=== PATIENT | male | born 1960 | race Two or more races ===

== ENCOUNTER 2017-01-31 12:12 | Inpatient (IN) | payer MEDICAID ==
[~2017-01-31] VITALS: Ht 170.2 cm; Wt 85.2 kg
[2017-01-31 17:00] VITALS: BP 125/78
[2017-01-31] MEDS ORDERED: ACETAMINOPHEN 325 MG TAB PO PRN (18:30)
[2017-01-31] MEDS ORDERED: NITROGLYCERIN 0.4 MG SL TAB SL PRN (18:30)
[2017-01-31] MEDS ORDERED: MORPHINE SULF INJ 2 MG/ML SYRINGE 1ML IV PRN ×2 (18:30)
[2017-01-31] MEDS ORDERED: ONDANSETRON HCL 4 MG/2 ML VIAL IV PRN (18:30)
[2017-01-31 20:00] VITALS: BP 134/75
[2017-01-31] MEDS ORDERED: CHLORHEXIDINE 0.12% ORAL rinse 473ML MT ONE (21:00)
[2017-01-31 21:46] VITALS: BP 134/75
[2017-01-31] MEDS: CARVEDILOL 3.125 MG TAB PO SCH (21:46)
[2017-01-31] MEDS: ATORVASTATIN 20 MG TAB PO SCH (21:47)
[2017-01-31] MEDS: FAMOTIDINE 20 MG TAB PO SCH (21:49)
[2017-02-01] VITALS (7 sets, daily range): BP systolic 107–137; BP diastolic 71–81
[2017-02-01 08:03] LABS: Urine RBC None Seen /hpf (0 - 3)
[2017-02-01 08:21] LABS: Albumin 3.5 g/dL (3.4-5.0); BUN/Creatinine Ratio 19.8; Calcium 8.9 mg/dL (8.5-10.1); Potassium 4.3 mmol/L (3.5-5.1)
[2017-02-01 08:24] LABS: Bilirubin, Total 0.8 mg/dL (0.2-1.0); Total Protein 8.5 g/dL (6.4-8.2)
[2017-02-01 08:37] LABS: Basophils # (auto) 0 uL; Basophils % (auto) 0.7 % (0.0-2.0); Eosinophils # (auto) 0.2 uL; Eosinophils % (auto) 3.2 % (0.0-7.0); Hematocrit 44.6 % (41.0-53.0); Hemoglobin 14.9 g/dL (13.5-17.5); Lymphocytes # (auto) 1.9 uL; Lymphocytes % (auto) 28.5 % (10.0-50.0); Mean Corpuscular Hemoglobin 29.2 pg (28.0-32.0); Mean Corpuscular Hgb Conc. 33.5 g/dL (32.0-36.0); Mean Corpuscular Volume 87.1 fL (80.0-100.0); Mean Platelet Volume 8.3 fL (7.4-10.4); Monocytes # (auto) 0.7 uL; Monocytes % (auto) 10.4 % (0.0-12.0); Neutrophils # (auto) 3.8 uL; Neutrophils % (auto) 57.2 % (37.0-80.0); Platelet Count (auto) 281 10^3/uL (140-450); Red Cell Distribution Width 12.9 % (11.6-16.0); White Blood Cell 6.7 10^3/uL (4.4-10.8)
[2017-02-01 08:41] LABS: INR 1.07 (0.9-1.15); Partial Thromboplastin Time 28.3 sec (22.64-33.71)
[2017-02-01 09:19] LABS: Urine Bilirubin Negative (Negative); Urine Blood Negative /uL (Negative); Urine Color Yellow (Yellow); Urine Glucose Normal (Normal); Urine Ketone Negative (Negative); Urine Mucus FEW (None Seen); Urine Nitrite Negative (Negative); Urine Urobilinogen Normal (Negative); Urine pH 5.5 (5.0-8.0)
[2017-02-01] MEDS: FAMOTIDINE 20 MG TAB PO SCH ×2 (09:45→21:58)
[2017-02-01] MEDS: CARVEDILOL 3.125 MG TAB PO SCH ×2 (09:46→21:58)
[2017-02-01] MEDS ORDERED: amLODIPine BESYLATE 5 MG TAB PO SCH (10:00)
[2017-02-01] MEDS ORDERED: ENOXAPARIN SOD 40 MG/0.4 ML SYRINGE SC SCH (10:00)
[2017-02-01] MEDS ORDERED: ASPirin 81 mg TAB PO SCH (10:00)
[2017-02-01] MEDS: ATORVASTATIN 20 MG TAB PO SCH (21:57)
[2017-02-01] MEDS ORDERED: ASCORBIC ACID 500 MG TAB PO ONE (22:00)
[2017-02-01] MEDS: MUPIROCIN 2% OINT 22GM TOP SCH (22:30)
[2017-02-02] VITALS (39 sets, daily range): BP systolic 25–139; BP diastolic 13–77
[2017-02-02] MEDS ORDERED: CHLORHEXIDINE 0.12% ORAL rinse 473ML MT ONE (00:47)
[2017-02-02] MEDS ORDERED: CHLORHEXIDINE 4% TOPICAL soln 473ML TOP ONE (03:00)
[2017-02-02 03:43] LABS: Basophils # (auto) 0.1 uL; Basophils % (auto) 0.7 % (0.0-2.0); Eosinophils # (auto) 0.3 uL; Eosinophils % (auto) 3.5 % (0.0-7.0); Hematocrit 42.4 % (41.0-53.0); Hemoglobin 14.1 g/dL (13.5-17.5); Lymphocytes # (auto) 2.6 uL; Lymphocytes % (auto) 31.9 % (10.0-50.0); Mean Corpuscular Hemoglobin 29.2 pg (28.0-32.0); Mean Corpuscular Hgb Conc. 33.3 g/dL (32.0-36.0); Mean Corpuscular Volume 87.5 fL (80.0-100.0); Mean Platelet Volume 8.5 fL (7.4-10.4); Monocytes # (auto) 1.1 uL; Monocytes % (auto) 13.9 % (0.0-12.0); Neutrophils # (auto) 4.1 uL; Platelet Count (auto) 273 10^3/uL (140-450); Red Cell Distribution Width 12.8 % (11.6-16.0); White Blood Cell 8.1 10^3/uL (4.4-10.8)
[2017-02-02 04:05] LABS: INR 1.1 (0.9-1.15); Partial Thromboplastin Time 27.8 sec (22.64-33.71); Prothrombin Time 11.3 sec (9.37-12.3)
[2017-02-02 04:41] LABS: Albumin 3.6 g/dL (3.4-5.0); BUN/Creatinine Ratio 17.3; Bilirubin, Direct 0.2 mg/dL (0-0.2); Bilirubin, Total 0.7 mg/dL (0.2-1.0); Calcium 8.6 mg/dL (8.5-10.1); Magnesium 2.4 mg/dL (1.6-2.6); Potassium 4.1 mmol/L (3.5-5.1); Total Protein 8.4 g/dL (6.4-8.2)
[2017-02-02] MEDS ORDERED: ceFAZolin 1GM/50ML D5W 0 ML IV ONE (04:58)
[2017-02-02] MEDS: MUPIROCIN 2% OINT 22GM TOP SCH (05:00)
[2017-02-02] MEDS ORDERED: ACCU-CHEK COMFORT CURVE STRIP VI ONE (06:00)
[2017-02-02] MEDS ORDERED: HEPARIN 1,000 UNITS/ml 1ML VIAL ONE (06:33)
[2017-02-02] MEDS ORDERED: ceFAZolin 1GM VL ONE (06:33)
[2017-02-02] MEDS ORDERED: PAPAVERINE HCL 60 MG/2 ML 2ML VIAL ONE (06:33)
[2017-02-02] MEDS ORDERED: NEOMYCIN-BACITRACIN-POLYM 15GM TOP OINT TOP ONE (06:33)
[2017-02-02] MEDS ORDERED: ALBUMIN 25% 0 ML IV ONE (07:59)
[2017-02-02] MEDS ORDERED: ceFAZolin 1GM 2 GM in D5W 5% 50 ML IV ONE (08:00)
[2017-02-02] MEDS ORDERED: SODIUM BICARBONATE 8.4 % INJ 50ML VIAL IV ONE (08:00)
[2017-02-02] MEDS ORDERED: VANCOMYCIN 1GM/250ML D5W 250 ML IV ONE (08:00)
[2017-02-02] MEDS ORDERED: DEXAMETHASONE SODIUM PHOSP 120 MG/30ml VIAL IV ONE (08:00)
[2017-02-02] MEDS ORDERED: AMINOCAPROIC ACID 5 GM in SODIUM CHL 0.9% 250 ML IV ONE (08:00)
[2017-02-02] MEDS ORDERED: LIDOCAINE HCL 100 MG/5ML (2%) SYRG INJ IV ONE (08:00)
[2017-02-02] MEDS ORDERED: MANNITOL 20% SOLN 100 gm/500ml BAG IV ONE (08:00)
[2017-02-02] MEDS ORDERED: AMINOCAPROIC ACID 5 GM/20 ML VL IV ONE (08:00)
[2017-02-02] MEDS ORDERED: AMINOCAPROIC ACID 10 GM in SODIUM CHL 0.9% 100 ML IV ONE (08:00)
[2017-02-02] MEDS ORDERED: ADENOSINE 6 MG/2 ML INJ IV ONE (08:00)
[2017-02-02] MEDS ORDERED: VASOPRESSIN 50 UNITS in SODIUM CHL 0.9% 247.5 ML IV ONE (08:00)
[2017-02-02] MEDS ORDERED: MAGNESIUM SULF 50% 40 MEQ/10 ML VL IV ONE (08:00)
[2017-02-02] MEDS ORDERED: CALCIUM CHLOR(10%) 100MG/ML 10ML SYRINGE IV ONE ×3 (08:00→13:02)
[2017-02-02] MEDS ORDERED: HEPARIN 30000 UNITS in SODIUM CHLORIDE 0.9% 1000 ML IV ONE (08:00)
[2017-02-02] MEDS ORDERED: POTASSIUM CHL 2MEQ/ML 20ML IV ONE (08:00)
[2017-02-02] MEDS ORDERED: InsuLIN R (HUMAN) 100 UNITS in SODIUM CHL 0.9% 99 ML IV ONE (08:00)
[2017-02-02] MEDS ORDERED: EPINEPHrine HCL 4 MG in D5W 5% 250 ML IM ONE (08:00)
[2017-02-02] MEDS ORDERED: PHENYLEPHRINE HCL 10 MG/ML VL IV ONE (08:00)
[2017-02-02] MEDS ORDERED: PHENYLEPHRINE INJ 20 MG in SODIUM CHL 0.9% 250 ML IV ONE (08:00)
[2017-02-02] MEDS ORDERED: PLASMA-LYTE A pH7.4 5,000 ML INJ ONE (08:01)
[2017-02-02] MEDS ORDERED: MIDAZOLAM HCL 1MG/1ML-2 ML VIAL ONE (08:03)
[2017-02-02] MEDS ORDERED: LIDOCAINE 2% JELLY 11ml (GLYDO) ONE (08:50)
[2017-02-02] MEDS ORDERED: fentaNYL CITRATE 10 ML ONE (09:29)
[2017-02-02] MEDS ORDERED: ROCURONIUM 10MG/ML 10ML VIAL IV ONE ×2 (10:40→13:48)
[2017-02-02] MEDS ORDERED: NITROGLYCERIN 50MG/250ML 250 ML IV ONE ×2 (10:58→12:40)
[2017-02-02] MEDS ORDERED: PROPOFOL 100 ML IV ONE ×2 (11:03→11:57)
[2017-02-02] MEDS ORDERED: ETOMIDATE (2MG/ML) 20ML VIAL IV ONE (11:04)
[2017-02-02] MEDS ORDERED: ePHEDrine SULFATE 50 MG/ML AMP ONE (11:05)
[2017-02-02] MEDS ORDERED: AMIODARONE HCL (50 MG/ ML) 3 ML VIAL IV ONE (12:38)
[2017-02-02] MEDS ORDERED: NICARDIPINE 25MG/250ML BAG KIT 250 ML IV ONE (12:39)
[2017-02-02] MEDS ORDERED: PHENYLEPHRINE IV 250 ML IV ONE (12:39)
[2017-02-02] MEDS ORDERED: EPINEPHrine HCL 250 ML IV ONE (12:39)
[2017-02-02] MEDS ORDERED: MAGNESIUM SULFATE 1GM/100ML 100 ML IV ONE (12:39)
[2017-02-02] MEDS ORDERED: DOPamine 1600MCG/ML 250 ML IV ONE (12:39)
[2017-02-02] MEDS ORDERED: POTASSIUM CHL 20MEQ/100ML 200 ML IV ONE (12:40)
[2017-02-02] MEDS ORDERED: SODIUM BICARBONATE 8.4% INJ 50ML SYRINGE ONE (12:40)
[2017-02-02] MEDS ORDERED: MILRINONE 20MG/100ML 100 ML IV ONE (12:40)
[2017-02-02] MEDS ORDERED: DOBUTamine 1000MCG/ML 250 ML IV ONE (12:40)
[2017-02-02] MEDS ORDERED: ALBUMIN 5% 750 ML IV ONE (12:41)
[2017-02-02] MEDS ORDERED: NOREPINEPHRINE BITARTRATE 250 ML IV ONE (12:41)
[2017-02-02] MEDS ORDERED: PROTAMINE SULFATE 250 MG/25 ML VL IV ONE (14:21)
[2017-02-02] MEDS ORDERED: ALBUMIN 5% 250 ML IV ONE ×2 (14:46→15:02)
[2017-02-02] MEDS: MILRINONE 20MG/100ML 100 ML IV SCH (15:39)
[2017-02-02] MEDS: SODIUM CHLORIDE 0.9% 500 ML IV SCH (15:39)
[2017-02-02] MEDS ORDERED: INSULIN DRIP 100 UNIT/100ML 100 ML IV SCH (15:39)
[2017-02-02] MEDS ORDERED: NOREPINEPHRINE BITARTRATE 250 ML IV SCH (15:39)
[2017-02-02] MEDS ORDERED: SODIUM CHLORIDE 0.9% 200 ML IV PRN (15:39)
[2017-02-02] MEDS ORDERED: NITROGLYCERIN 50MG/250ML 250 ML IV SCH (15:39)
[2017-02-02] MEDS: NICARDIPINE 25MG/250ML BAG KIT 250 ML IV SCH ×2 (15:39→20:39)
[2017-02-02] MEDS ORDERED: PHENYLEPHRINE IV 250 ML IV SCH (15:39)
[2017-02-02] MEDS ORDERED: MAGNESIUM SULFATE 1GM/100ML 100 ML IV PRN (15:45)
[2017-02-02] MEDS ORDERED: IPRATROPIUM BROM 0.5 MG/2.5ML INH SOL NEB PRN (15:45)
[2017-02-02] MEDS ORDERED: POTASSIUM CHL 20MEQ/100ML 100 ML IV PRN (15:45)
[2017-02-02] MEDS ORDERED: DEXTROSE (50%) 50ML SYRG IV PRN (15:45)
[2017-02-02] MEDS ORDERED: ALBUMIN 5% 250 ML IV PRN (15:45)
[2017-02-02] MEDS ORDERED: METOCLOPRAMIDE HCL 5MG/ml INJ 2ml VIAL IV PRN (15:45)
[2017-02-02] MEDS ORDERED: AMIODARONE HCL 150 MG in D5W 5% 100 ML IV ONE (15:45)
[2017-02-02] MEDS: AMIODARONE HCL 900 MG in DEXTROSE 500 ML IV SCH (15:49)
[2017-02-02] MEDS: D5W/SOD CHL 0.45% 1,000 ML IV SCH ×2 (16:00→22:19)
[2017-02-02] MEDS: ACCU-CHEK COMFORT CURVE STRIP VI SCH ×7 (16:00→23:00)
[2017-02-02] MEDS: PROPOFOL 100 ML IV SCH ×2 (16:00→18:18)
[2017-02-02 16:48] LABS: Basophils # (auto) 0 uL; Basophils % (auto) 0.2 % (0.0-2.0); Eosinophils # (auto) 0 uL; Eosinophils % (auto) 0.1 % (0.0-7.0); Hematocrit 28.7 % (41.0-53.0); Hemoglobin 9.7 g/dL (13.5-17.5); Lymphocytes # (auto) 0.8 uL; Mean Corpuscular Hemoglobin 29.5 pg (28.0-32.0); Mean Corpuscular Hgb Conc. 33.7 g/dL (32.0-36.0); Mean Corpuscular Volume 87.7 fL (80.0-100.0); Mean Platelet Volume 7.9 fL (7.4-10.4); Monocytes # (auto) 1.5 uL; Monocytes % (auto) 9.4 % (0.0-12.0); Neutrophils # (auto) 13.5 uL; Neutrophils % (auto) 85.3 % (37.0-80.0); Platelet Count (auto) 165 10^3/uL (140-450); Red Cell Distribution Width 12.9 % (11.6-16.0); White Blood Cell 15.9 10^3/uL (4.4-10.8)
[2017-02-02 16:58] LABS: INR 1.23 (0.9-1.15); Partial Thromboplastin Time 30.1 sec (22.64-33.71); Prothrombin Time 12.7 sec (9.37-12.3)
[2017-02-02 17:19] LABS: BUN/Creatinine Ratio 13.6; Bilirubin, Total 1.8 mg/dL (0.2-1.0); Calcium 7.9 mg/dL (8.5-10.1); Potassium 3.5 mmol/L (3.5-5.1); Total Protein 6.6 g/dL (6.4-8.2)
[2017-02-02] MEDS: MORPHINE SULFATE 4 MG/ML SYRG IV PRN (17:25)
[2017-02-02] MEDS: ceFAZolin 1GM 2 GM in D5W 5% 100 ML IV SCH ×2 (17:30→23:55)
[2017-02-02 17:36] LABS: Phosphorus 0.6 mg/dL (2.5-4.90)
[2017-02-02] MEDS ORDERED: fentaNYL Drip 2500mCg/250mlNS 250 ML IV ONE (17:43)
[2017-02-02] MEDS ORDERED: fentaNYL Drip 2500mCg/250mlNS 250 ML IV SCH (17:58)
[2017-02-02] MEDS ORDERED: CALCIUM GLUC 4.65 MEQ/10ML 4.65 MEQ in SODIUM CHL 0.9% 50 ML IV ONE (18:15)
[2017-02-02] MEDS ORDERED: POTASSIUM PHOSPHATE 22 MEQ in SODIUM CHL 0.9% 100 ML IV ONE (18:15)
[2017-02-02] MEDS: VANCOMYCIN 1GM/250ML D5W 250 ML IV SCH (18:18)
[2017-02-03] VITALS (101 sets, daily range): BP systolic 22–180; BP diastolic 7–176
[2017-02-03] MEDS ORDERED: AMIODARONE HCL (50 MG/ ML) 3 ML VIAL IV ONE (00:05)
[2017-02-03] MEDS: AMIODARONE HCL 900 MG in DEXTROSE 500 ML IV SCH ×2 (00:05→07:00)
[2017-02-03 00:16] LABS: Basophils # (auto) 0 uL; Basophils % (auto) 0.1 % (0.0-2.0); Eosinophils # (auto) 0 uL; Eosinophils % (auto) 0.1 % (0.0-7.0); Hematocrit 29.7 % (41.0-53.0); Hemoglobin 9.9 g/dL (13.5-17.5); Lymphocytes # (auto) 0.6 uL; Lymphocytes % (auto) 4.7 % (10.0-50.0); Mean Corpuscular Hemoglobin 29.5 pg (28.0-32.0); Mean Corpuscular Hgb Conc. 33.4 g/dL (32.0-36.0); Mean Corpuscular Volume 88.3 fL (80.0-100.0); Mean Platelet Volume 8.4 fL (7.4-10.4); Monocytes # (auto) 0.7 uL; Monocytes % (auto) 5.6 % (0.0-12.0); Neutrophils # (auto) 11.6 uL; Neutrophils % (auto) 89.5 % (37.0-80.0); Platelet Count (auto) 157 10^3/uL (140-450); SUSPECT VIEW TRANSMISSION; White Blood Cell 12.9 10^3/uL (4.4-10.8)
[2017-02-03 00:27] LABS: Potassium 4.4 mmol/L (3.5-5.1)
[2017-02-03 00:53] LABS: BUN/Creatinine Ratio 13.8; Calcium 8.3 mg/dL (8.5-10.1)
[2017-02-03] MEDS: ACCU-CHEK COMFORT CURVE STRIP VI SCH ×19 (01:00→21:31)
[2017-02-03] MEDS: NICARDIPINE 25MG/250ML BAG KIT 250 ML IV SCH ×5 (01:39→18:28)
[2017-02-03] MEDS: MILRINONE 20MG/100ML 100 ML IV SCH ×2 (01:42→09:42)
[2017-02-03] MEDS: VANCOMYCIN 1GM/250ML D5W 250 ML IV SCH ×2 (03:54→17:15)
[2017-02-03] MEDS: SODIUM BICARBONATE 8.4% INJ 50ML SYRINGE IV PRN ×2 (04:02→10:52)
[2017-02-03] MEDS: D5W/SOD CHL 0.45% 1,000 ML IV SCH ×2 (04:59→09:41)
[2017-02-03 05:05] LABS: Magnesium 3.4 mg/dL (1.6-2.6); Phosphorus 3.6 mg/dL (2.5-4.90)
[2017-02-03 06:09] LABS: BUN/Creatinine Ratio 16.8; Potassium 4.5 mmol/L (3.5-5.1)
[2017-02-03] MEDS: MORPHINE SULFATE 4 MG/ML SYRG IV PRN ×4 (07:50→19:23)
[2017-02-03] MEDS: ceFAZolin 1GM 2 GM in D5W 5% 100 ML IV SCH ×3 (07:51→23:35)
[2017-02-03] MEDS ORDERED: ALBUMIN 25% 100 ML IV ONE (09:00)
[2017-02-03] MEDS ORDERED: PANTOPRAZOLE SODIUM 40 MG/10 ML VIAL IV SCH (10:00)
[2017-02-03] MEDS ORDERED: FUROSEMIDE 20 MG/2 ML VIAL ONE (10:59)
[2017-02-03] MEDS ORDERED: FUROSEMIDE 20 MG/2 ML VIAL IV ONE (11:15)
[2017-02-03] MEDS ORDERED: SODIUM BICARBONATE 8.4 % INJ 50ML VIAL IV ONE (11:15)
[2017-02-03] MEDS: SODIUM CHLORIDE 0.9% 500 ML IV SCH (13:09)
[2017-02-03] MEDS ORDERED: HYDROcodone-ACET 7.5/325MG TAB PO PRN (13:15)
[2017-02-03] MEDS ORDERED: METOCLOPRAMIDE HCL 5MG/ml INJ 2ml VIAL IV PRN (13:15)
[2017-02-03] MEDS ORDERED: POTASSIUM CHL 20MEQ/100ML 100 ML IV PRN (13:15)
[2017-02-03] MEDS ORDERED: DEXTROSE (50%) 50ML SYRG IV PRN (13:15)
[2017-02-03] MEDS ORDERED: LIDOCAINE 1% HCL (LOCAL ANESTH.) INJ 20ML MDV ONE (13:50)
[2017-02-03] MEDS: InsuLIN REG 1unit/0.01ml Soln (100units/ml) SC SCH ×3 (14:00→21:30)
[2017-02-03] MEDS: SODIUM CHLORIDE 0.9% 1,000 ML IV SCH (15:25)
[2017-02-03] MEDS ORDERED: CALCIUM GLUC 4.65 MEQ/10ML 4.65 MEQ in SODIUM CHL 0.9% 50 ML IV ONE (15:45)
[2017-02-03] MEDS ORDERED: hydrALAZINE HCL 20 MG/ML VL IV PRN (17:15)
[2017-02-03] MEDS ORDERED: ASPirin 81 mg TAB PO ONE (17:30)
[2017-02-03] MEDS ORDERED: FUROSEMIDE 20 MG/2 ML VIAL IV PRN (17:30)
[2017-02-03] MEDS: FUROSEMIDE 40 MG TAB PO SCH (17:49)
[2017-02-03] MEDS: Boost Glucose Control 8 Ounces PO SCH (17:49)
[2017-02-03] MEDS: HYDROcodone-ACET 7.5/325MG TAB PO PRN (18:27)
[2017-02-03] MEDS: ASCORBIC ACID 500 MG TAB PO SCH (21:20)
[2017-02-03] MEDS: ATORVASTATIN 20 MG TAB PO SCH (21:20)
[2017-02-03] MEDS: METOPROLOL TARTRATE 25 MG TAB PO SCH (21:21)
[2017-02-03] MEDS: AMIODARONE HCL 200 MG TAB PO SCH (21:21)
[2017-02-03] MEDS: DOCUSATE SOD 100 MG CAP PO SCH (21:34)
[2017-02-04] VITALS (98 sets, daily range): BP systolic 88–158; BP diastolic 36–85
[2017-02-04] MEDS: MORPHINE SULFATE 4 MG/ML SYRG IV PRN ×2 (00:29→04:30)
[2017-02-04] MEDS: ACCU-CHEK COMFORT CURVE STRIP VI SCH ×7 (01:41→20:00)
[2017-02-04] MEDS: InsuLIN REG 1unit/0.01ml Soln (100units/ml) SC SCH ×4 (01:48→20:00)
[2017-02-04] MEDS: NICARDIPINE 25MG/250ML BAG KIT 250 ML IV SCH ×5 (02:39→22:39)
[2017-02-04] MEDS: VANCOMYCIN 1GM/250ML D5W 250 ML IV SCH (03:36)
[2017-02-04 03:55] LABS: Basophils # (auto) 0 uL; DEFINITIVE VIEW TRANSMISSION; Eosinophils # (auto) 0 uL; Hematocrit 24.3 % (41.0-53.0); Hemoglobin 8.1 g/dL (13.5-17.5); Lymphocytes # (auto) 1.3 uL; Lymphocytes % (auto) 7.8 % (10.0-50.0); Mean Corpuscular Hemoglobin 29.6 pg (28.0-32.0); Mean Corpuscular Hgb Conc. 33.2 g/dL (32.0-36.0); Mean Corpuscular Volume 89.1 fL (80.0-100.0); Mean Platelet Volume 9.4 fL (7.4-10.4); Monocytes # (auto) 1.9 uL; Monocytes % (auto) 11.6 % (0.0-12.0); Neutrophils % (auto) 80.6 % (37.0-80.0); Platelet Count (auto) 150 10^3/uL (140-450); Red Cell Distribution Width 13.4 % (11.6-16.0); White Blood Cell 16.1 10^3/uL (4.4-10.8)
[2017-02-04] MEDS: FUROSEMIDE 40 MG TAB PO SCH ×2 (05:44→17:40)
[2017-02-04] MEDS: SODIUM CHLORIDE 0.9% 1,000 ML IV SCH ×2 (06:08→17:55)
[2017-02-04 07:07] LABS: Albumin 3.5 g/dL (3.4-5.0); BUN/Creatinine Ratio 27.7; Calcium 7.5 mg/dL (8.5-10.1); Magnesium 2.8 mg/dL (1.6-2.6); Potassium 4.4 mmol/L (3.5-5.1)
[2017-02-04 07:09] LABS: Bilirubin, Total 1.2 mg/dL (0.2-1.0)
[2017-02-04] MEDS ORDERED: CALCIUM GLUC 4.65 MEQ/10ML 4.65 MEQ in SODIUM CHL 0.9% 50 ML IV ONE ×2 (07:45→08:30)
[2017-02-04] MEDS: ceFAZolin 1GM 2 GM in D5W 5% 100 ML IV SCH (07:54)
[2017-02-04] MEDS: AMIODARONE HCL 900 MG in DEXTROSE 500 ML IV SCH ×2 (07:57→21:49)
[2017-02-04] MEDS: Boost Glucose Control 8 Ounces PO SCH ×3 (08:00→18:00)
[2017-02-04] MEDS ORDERED: INSULIN DRIP 100 UNIT/100ML 100 ML IV SCH (08:27)
[2017-02-04] MEDS ORDERED: DEXTROSE (50%) 50ML SYRG IV PRN ×2 (08:30→13:00)
[2017-02-04] MEDS: ONDANSETRON HCL 4 MG/2 ML VIAL IV PRN ×2 (09:24→18:14)
[2017-02-04] MEDS: ASPirin 81 mg TAB PO SCH (09:33)
[2017-02-04] MEDS: DOCUSATE SOD 100 MG CAP PO SCH ×2 (09:33→21:47)
[2017-02-04] MEDS: POTASSIUM CHL 20 Meq TABLET PO SCH (09:34)
[2017-02-04] MEDS: AMIODARONE HCL 200 MG TAB PO SCH ×2 (09:34→21:47)
[2017-02-04] MEDS: METOPROLOL TARTRATE 25 MG TAB PO SCH ×2 (09:35→21:48)
[2017-02-04] MEDS: NITROGLYCERIN 0.4MG/HR TOPICAL PATCH TD SCH (09:35)
[2017-02-04] MEDS: PANTOPRAZOLE 40 MG TAB PO SCH (09:35)
[2017-02-04] MEDS: ASCORBIC ACID 500 MG TAB PO SCH ×2 (09:35→21:48)
[2017-02-04] MEDS: MORPHINE SULF INJ 2 MG/ML SYRINGE 1ML IV PRN ×3 (09:37→16:46)
[2017-02-04] MEDS ORDERED: CLOPIDOGREL BISULFATE 75 MG TAB PO ONE (13:00)
[2017-02-04] MEDS ORDERED: IOHEXOL 350 MG/ML 100ML IJ ONE (13:04)
[2017-02-04] MEDS ORDERED: ACETYLCYSTEINE 10 %(100MG/ML) SOL 4ML NEB SCH (14:00)
[2017-02-04] MEDS ORDERED: LIDOCAINE VISCOUS 2% 15ML UD ONE (14:37)
[2017-02-04] MEDS ORDERED: LIDOCAINE VISCOUS 2% 15ML UD MT PRN (14:45)
[2017-02-04] MEDS: SODIUM CHLORIDE 0.9% 500 ML IV SCH (15:39)
[2017-02-04] MEDS: IPRATROPIUM BROM 0.5 MG/2.5ML INH SOL NEB SCH ×3 (15:41→22:00)
[2017-02-04] MEDS ORDERED: hydrALAZINE HCL 20 MG/ML VL IV PRN (16:45)
[2017-02-04] MEDS: ACETYLCYSTEINE 10 %(100MG/ML) SOL 4ML NEB SCH ×2 (18:00→22:00)
[2017-02-04 18:39] LABS: Hematocrit 26.9 % (41.0-53.0)
[2017-02-04] MEDS: HYDROcodone-ACET 7.5/325MG TAB PO PRN (21:01)
[2017-02-04] MEDS: ATORVASTATIN 20 MG TAB PO SCH (21:47)
[2017-02-04] MEDS: INSULIN DETEMIR(LEVEMIR) 1unit/0.01ml Soln (100units/ml) SC SCH (22:00)
[2017-02-05] VITALS (89 sets, daily range): BP systolic 100–129; BP diastolic 56–85
[2017-02-05] MEDS: IPRATROPIUM BROM 0.5 MG/2.5ML INH SOL NEB SCH ×6 (02:07→22:15)
[2017-02-05] MEDS: ACETYLCYSTEINE 10 %(100MG/ML) SOL 4ML NEB SCH ×6 (02:08→22:16)
[2017-02-05] MEDS: InsuLIN REG 1unit/0.01ml Soln (100units/ml) SC SCH ×6 (02:29→20:00)
[2017-02-05] MEDS: ACCU-CHEK COMFORT CURVE STRIP VI SCH ×6 (02:29→20:14)
[2017-02-05] MEDS: NICARDIPINE 25MG/250ML BAG KIT 250 ML IV SCH ×5 (03:39→23:39)
[2017-02-05 03:51] LABS: Basophils # (auto) 0 uL; Basophils % (auto) 0.2 % (0.0-2.0); Eosinophils # (auto) 0 uL; Hematocrit 27.9 % (41.0-53.0); Hemoglobin 9.2 g/dL (13.5-17.5); Lymphocytes # (auto) 1.9 uL; Lymphocytes % (auto) 14.4 % (10.0-50.0); Mean Corpuscular Hemoglobin 29.5 pg (28.0-32.0); Mean Corpuscular Volume 89.3 fL (80.0-100.0); Mean Platelet Volume 9.3 fL (7.4-10.4); Monocytes # (auto) 1.4 uL; Monocytes % (auto) 10.9 % (0.0-12.0); Neutrophils # (auto) 9.7 uL; Neutrophils % (auto) 74.5 % (37.0-80.0); Platelet Count (auto) 159 10^3/uL (140-450); Red Cell Distribution Width 13.8 % (11.6-16.0); White Blood Cell 13.1 10^3/uL (4.4-10.8)
[2017-02-05 04:19] LABS: Albumin 3.4 g/dL (3.4-5.0); BUN/Creatinine Ratio 34.2; Bilirubin, Total 3.3 mg/dL (0.2-1.0); Magnesium 2.8 mg/dL (1.6-2.6); Potassium 4.5 mmol/L (3.5-5.1); Total Protein 6.7 g/dL (6.4-8.2)
[2017-02-05] MEDS: FUROSEMIDE 40 MG TAB PO SCH ×2 (06:21→18:15)
[2017-02-05] MEDS: Boost Glucose Control 8 Ounces PO SCH ×3 (08:00→20:14)
[2017-02-05] MEDS: ASCORBIC ACID 500 MG TAB PO SCH ×2 (09:39→22:04)
[2017-02-05] MEDS: AMIODARONE HCL 200 MG TAB PO SCH ×2 (09:40→22:04)
[2017-02-05] MEDS: CLOPIDOGREL BISULFATE 75 MG TAB PO SCH (09:40)
[2017-02-05] MEDS: PANTOPRAZOLE 40 MG TAB PO SCH (09:40)
[2017-02-05] MEDS: METOPROLOL TARTRATE 25 MG TAB PO SCH ×2 (09:41→22:04)
[2017-02-05] MEDS: DOCUSATE SOD 100 MG CAP PO SCH ×2 (09:41→22:04)
[2017-02-05] MEDS: ASPirin 81 mg TAB PO SCH (09:42)
[2017-02-05] MEDS: NITROGLYCERIN 0.4MG/HR TOPICAL PATCH TD SCH (09:43)
[2017-02-05] MEDS: INSULIN DETEMIR(LEVEMIR) 1unit/0.01ml Soln (100units/ml) SC SCH ×2 (09:44→22:00)
[2017-02-05] MEDS: POTASSIUM CHL 20 Meq TABLET PO SCH (09:45)
[2017-02-05] MEDS: SODIUM CHLORIDE 0.9% 1,000 ML IV SCH (10:00)
[2017-02-05] MEDS: SODIUM CHLORIDE 0.9% 500 ML IV SCH (20:14)
[2017-02-05] MEDS: ONDANSETRON HCL 4 MG/2 ML VIAL IV PRN (20:21)
[2017-02-05] MEDS: AMIODARONE HCL 900 MG in DEXTROSE 500 ML IV SCH (21:49)
[2017-02-05] MEDS: ATORVASTATIN 20 MG TAB PO SCH (22:04)
[2017-02-06] VITALS (96 sets, daily range): BP systolic 85–140; BP diastolic 41–97
[2017-02-06] MEDS: ACETYLCYSTEINE 10 %(100MG/ML) SOL 4ML NEB SCH ×4 (02:01→23:17)
[2017-02-06] MEDS: IPRATROPIUM BROM 0.5 MG/2.5ML INH SOL NEB SCH ×6 (02:01→23:17)
[2017-02-06] MEDS: ACCU-CHEK COMFORT CURVE STRIP VI SCH ×6 (03:44→21:47)
[2017-02-06] MEDS: InsuLIN REG 1unit/0.01ml Soln (100units/ml) SC SCH ×6 (03:44→21:47)
[2017-02-06 04:15] LABS: Basophils # (auto) 0 uL; Basophils % (auto) 0.2 % (0.0-2.0); Eosinophils # (auto) 0.1 uL; Eosinophils % (auto) 0.5 % (0.0-7.0); Hematocrit 26.4 % (41.0-53.0); Hemoglobin 8.8 g/dL (13.5-17.5); Lymphocytes # (auto) 1.6 uL; Lymphocytes % (auto) 13.3 % (10.0-50.0); Mean Corpuscular Hemoglobin 29.9 pg (28.0-32.0); Mean Corpuscular Hgb Conc. 33.2 g/dL (32.0-36.0); Mean Corpuscular Volume 89.9 fL (80.0-100.0); Mean Platelet Volume 9.1 fL (7.4-10.4); Monocytes # (auto) 1.5 uL; Monocytes % (auto) 12.4 % (0.0-12.0); Neutrophils # (auto) 8.7 uL; Neutrophils % (auto) 73.6 % (37.0-80.0); Platelet Count (auto) 142 10^3/uL (140-450); Red Cell Distribution Width 13.8 % (11.6-16.0); SUSPECT VIEW TRANSMISSION; White Blood Cell 11.8 10^3/uL (4.4-10.8)
[2017-02-06 04:26] LABS: Albumin 2.9 g/dL (3.4-5.0); BUN/Creatinine Ratio 38.5; Bilirubin, Total 3.2 mg/dL (0.2-1.0); Calcium 7.7 mg/dL (8.5-10.1); Magnesium 2.5 mg/dL (1.6-2.6); Potassium 4.1 mmol/L (3.5-5.1); Total Protein 6.3 g/dL (6.4-8.2)
[2017-02-06] MEDS: NICARDIPINE 25MG/250ML BAG KIT 250 ML IV SCH ×3 (04:39→14:39)
[2017-02-06] MEDS: FUROSEMIDE 40 MG TAB PO SCH ×2 (06:00→18:38)
[2017-02-06] MEDS: Boost Glucose Control 8 Ounces PO SCH ×3 (08:00→18:00)
[2017-02-06] MEDS: ONDANSETRON HCL 4 MG/2 ML VIAL IV PRN ×2 (08:35→09:50)
[2017-02-06] MEDS: NITROGLYCERIN 0.4MG/HR TOPICAL PATCH TD SCH (09:47)
[2017-02-06] MEDS: CLOPIDOGREL BISULFATE 75 MG TAB PO SCH (09:47)
[2017-02-06] MEDS: ASCORBIC ACID 500 MG TAB PO SCH ×2 (09:47→22:26)
[2017-02-06] MEDS: AMIODARONE HCL 200 MG TAB PO SCH ×2 (09:47→22:25)
[2017-02-06] MEDS: POTASSIUM CHL 20 Meq TABLET PO SCH (09:48)
[2017-02-06] MEDS: DOCUSATE SOD 100 MG CAP PO SCH ×2 (09:48→22:25)
[2017-02-06] MEDS: ASPirin 81 mg TAB PO SCH (09:48)
[2017-02-06] MEDS: METOPROLOL TARTRATE 25 MG TAB PO SCH ×2 (09:49→22:26)
[2017-02-06] MEDS: PANTOPRAZOLE 40 MG TAB PO SCH (10:00)
[2017-02-06] MEDS: INSULIN DETEMIR(LEVEMIR) 1unit/0.01ml Soln (100units/ml) SC SCH ×2 (10:00→21:48)
[2017-02-06] MEDS ORDERED: SODIUM CHLORIDE 0.9% 1,000 ML IV SCH (15:15)
[2017-02-06] MEDS: SODIUM CHLORIDE 0.9% 500 ML IV SCH (15:39)
[2017-02-06] MEDS: SODIUM CHLORIDE 0.9% 1,000 ML IV SCH (17:00)
[2017-02-06] MEDS ORDERED: TAMSULOSIN HYDROCHLORIDE 0.4 MG CAP PO SCH (18:00)
[2017-02-06] MEDS: FERROUS SULFATE 325 MG TAB PO SCH (18:38)
[2017-02-06] MEDS: TAMSULOSIN HYDROCHLORIDE 0.4 MG CAP PO SCH (18:39)
[2017-02-06 20:11] LABS: Magnesium 2.7 mg/dL (1.6-2.6)
[2017-02-06] MEDS ORDERED: IOHEXOL 350 MG/ML 100ML IJ ONE (20:48)
[2017-02-06] MEDS: AMIODARONE HCL 900 MG in DEXTROSE 500 ML IV SCH (21:49)
[2017-02-06] MEDS: ATORVASTATIN 20 MG TAB PO SCH (22:25)
[2017-02-06] MEDS: POTASSIUM CHL 20 Meq TABLET PO PRN (22:27)
[2017-02-07] VITALS (86 sets, daily range): BP systolic 95–127; BP diastolic 56–84
[2017-02-07] MEDS: IPRATROPIUM BROM 0.5 MG/2.5ML INH SOL NEB SCH ×6 (02:00→22:00)
[2017-02-07] MEDS: HYDROcodone-ACET 7.5/325MG TAB PO PRN (02:05)
[2017-02-07 03:37] LABS: Basophils # (auto) 0 uL; Basophils % (auto) 0.2 % (0.0-2.0); DEFINITIVE VIEW TRANSMISSION; Eosinophils # (auto) 0.3 uL; Eosinophils % (auto) 2.1 % (0.0-7.0); Hematocrit 26.4 % (41.0-53.0); Hemoglobin 8.8 g/dL (13.5-17.5); Lymphocytes # (auto) 2.1 uL; Lymphocytes % (auto) 17.7 % (10.0-50.0); Mean Corpuscular Hgb Conc. 33.3 g/dL (32.0-36.0); Mean Corpuscular Volume 89.9 fL (80.0-100.0); Mean Platelet Volume 8.3 fL (7.4-10.4); Monocytes # (auto) 1.7 uL; Monocytes % (auto) 14.6 % (0.0-12.0); Neutrophils # (auto) 7.8 uL; Neutrophils % (auto) 65.4 % (37.0-80.0); Platelet Count (auto) 232 10^3/uL (140-450); Red Cell Distribution Width 13.4 % (11.6-16.0); White Blood Cell 11.9 10^3/uL (4.4-10.8)
[2017-02-07 04:04] LABS: BUN/Creatinine Ratio 37.3; Calcium 8.1 mg/dL (8.5-10.1); Magnesium 2.7 mg/dL (1.6-2.6)
[2017-02-07] MEDS: FUROSEMIDE 40 MG TAB PO SCH ×2 (06:12→18:00)
[2017-02-07] MEDS: POTASSIUM CHL 20 Meq TABLET PO PRN (06:12)
[2017-02-07] MEDS: ACCU-CHEK COMFORT CURVE STRIP VI SCH ×4 (07:00→21:54)
[2017-02-07] MEDS: ACETYLCYSTEINE 10 %(100MG/ML) SOL 4ML NEB SCH ×3 (07:18→19:21)
[2017-02-07] MEDS: InsuLIN REG 1unit/0.01ml Soln (100units/ml) SC SCH ×4 (07:41→21:52)
[2017-02-07] MEDS: Boost Glucose Control 8 Ounces PO SCH ×3 (08:00→18:00)
[2017-02-07] MEDS: INSULIN DETEMIR(LEVEMIR) 1unit/0.01ml Soln (100units/ml) SC SCH ×2 (10:00→21:54)
[2017-02-07] MEDS: CLOPIDOGREL BISULFATE 75 MG TAB PO SCH (10:04)
[2017-02-07] MEDS: NITROGLYCERIN 0.4MG/HR TOPICAL PATCH TD SCH (10:04)
[2017-02-07] MEDS: ASCORBIC ACID 500 MG TAB PO SCH ×2 (10:04→21:51)
[2017-02-07] MEDS: FERROUS SULFATE 325 MG TAB PO SCH ×2 (10:04→18:00)
[2017-02-07] MEDS: AMIODARONE HCL 200 MG TAB PO SCH ×2 (10:04→21:49)
[2017-02-07] MEDS: DOCUSATE SOD 100 MG CAP PO SCH ×2 (10:05→21:48)
[2017-02-07] MEDS: METOPROLOL TARTRATE 25 MG TAB PO SCH ×2 (10:05→21:49)
[2017-02-07] MEDS: PANTOPRAZOLE 40 MG TAB PO SCH (10:05)
[2017-02-07] MEDS: POTASSIUM CHL 20 Meq TABLET PO SCH (10:05)
[2017-02-07] MEDS: ASPirin 81 mg TAB PO SCH (10:09)
[2017-02-07] MEDS: SODIUM CHLORIDE 0.9% 500 ML IV SCH (15:39)
[2017-02-07] MEDS: SODIUM CHLORIDE 0.9% 1,000 ML IV SCH (16:45)
[2017-02-07] MEDS: ALUM & MAG HYDROX-SIMETH LIQ(MAALOX) 30 ML GT PRN (17:36)
[2017-02-07] MEDS: TAMSULOSIN HYDROCHLORIDE 0.4 MG CAP PO SCH (18:00)
[2017-02-07] MEDS: AMIODARONE HCL 900 MG in DEXTROSE 500 ML IV SCH (21:49)
[2017-02-07] MEDS: ATORVASTATIN 20 MG TAB PO SCH (21:49)
[2017-02-08] VITALS (71 sets, daily range): BP systolic 95–146; BP diastolic 47–87
[2017-02-08] MEDS: SODIUM CHLORIDE 0.9% 1,000 ML IV SCH (01:30)
[2017-02-08 04:09] LABS: Basophils # (auto) 0 uL; Basophils % (auto) 0.2 % (0.0-2.0); Eosinophils # (auto) 0.4 uL; Eosinophils % (auto) 2.7 % (0.0-7.0); Hemoglobin 8.7 g/dL (13.5-17.5); Lymphocytes # (auto) 2.1 uL; Lymphocytes % (auto) 15.2 % (10.0-50.0); Mean Corpuscular Hemoglobin 29.9 pg (28.0-32.0); Mean Corpuscular Hgb Conc. 33.4 g/dL (32.0-36.0); Mean Corpuscular Volume 89.6 fL (80.0-100.0); Mean Platelet Volume 8.4 fL (7.4-10.4); Monocytes # (auto) 1.6 uL; Monocytes % (auto) 11.5 % (0.0-12.0); Neutrophils # (auto) 9.6 uL; Neutrophils % (auto) 70.4 % (37.0-80.0); Platelet Count (auto) 295 10^3/uL (140-450); Red Cell Distribution Width 13.5 % (11.6-16.0); White Blood Cell 13.7 10^3/uL (4.4-10.8)
[2017-02-08 04:21] LABS: BUN/Creatinine Ratio 35.9; Calcium 8.2 mg/dL (8.5-10.1); Potassium 4.1 mmol/L (3.5-5.1)
[2017-02-08] MEDS: InsuLIN REG 1unit/0.01ml Soln (100units/ml) SC SCH ×4 (07:00→22:00)
[2017-02-08] MEDS: IPRATROPIUM BROM 0.5 MG/2.5ML INH SOL NEB SCH ×4 (07:05→20:38)
[2017-02-08] MEDS: ACETYLCYSTEINE 10 %(100MG/ML) SOL 4ML NEB SCH ×3 (07:05→20:38)
[2017-02-08] MEDS: ACCU-CHEK COMFORT CURVE STRIP VI SCH ×4 (07:12→22:24)
[2017-02-08] MEDS: FUROSEMIDE 40 MG TAB PO SCH ×2 (07:12→17:43)
[2017-02-08] MEDS: FERROUS SULFATE 325 MG TAB PO SCH ×2 (08:00→17:53)
[2017-02-08] MEDS: Boost Glucose Control 8 Ounces PO SCH ×3 (08:00→17:42)
[2017-02-08] MEDS: SENNA 8.6 MG TAB PO PRN (08:34)
[2017-02-08] MEDS: POTASSIUM CHL 20 Meq TABLET PO SCH (09:58)
[2017-02-08] MEDS: DOCUSATE SOD 100 MG CAP PO SCH ×2 (09:59→22:23)
[2017-02-08] MEDS: ASPirin 81 mg TAB PO SCH (09:59)
[2017-02-08] MEDS: ASCORBIC ACID 500 MG TAB PO SCH (09:59)
[2017-02-08] MEDS: CLOPIDOGREL BISULFATE 75 MG TAB PO SCH (10:00)
[2017-02-08] MEDS: PANTOPRAZOLE 40 MG TAB PO SCH (10:00)
[2017-02-08] MEDS: METOPROLOL TARTRATE 25 MG TAB PO SCH ×2 (10:01→23:00)
[2017-02-08] MEDS: AMIODARONE HCL 200 MG TAB PO SCH ×2 (10:01→22:23)
[2017-02-08] MEDS: NITROGLYCERIN 0.4MG/HR TOPICAL PATCH TD SCH (10:03)
[2017-02-08] MEDS: ALUM & MAG HYDROX-SIMETH LIQ(MAALOX) 30 ML GT PRN (10:03)
[2017-02-08] MEDS: INSULIN DETEMIR(LEVEMIR) 1unit/0.01ml Soln (100units/ml) SC SCH ×2 (10:07→22:00)
[2017-02-08] MEDS ORDERED: CALCIUM GLUC 4.65 MEQ/10ML 4.65 MEQ in SODIUM CHL 0.9% 50 ML IV ONE (12:30)
[2017-02-08] MEDS ORDERED: MAGNESIUM SULFATE 1GM/100ML 100 ML IV ONE ×2 (12:30→15:45)
[2017-02-08] MEDS: SODIUM CHLORIDE 0.9% 500 ML IV SCH (13:04)
[2017-02-08] MEDS ORDERED: ENOXAPARIN SOD 40 MG/0.4 ML SYRINGE SC ONE (15:45)
[2017-02-08] MEDS: TAMSULOSIN HYDROCHLORIDE 0.4 MG CAP PO SCH (17:42)
[2017-02-08] MEDS: AMIODARONE HCL 900 MG in DEXTROSE 500 ML IV SCH (21:49)
[2017-02-08] MEDS ORDERED: METOPROLOL TARTRATE 25 MG TAB PO SCH (22:00)
[2017-02-08] MEDS: CALCIUM CARB 500 MG CHEW TAB PO SCH (22:23)
[2017-02-08] MEDS: ATORVASTATIN 20 MG TAB PO SCH (22:23)
[2017-02-08] MEDS: HYDROcodone-ACET 7.5/325MG TAB PO PRN (22:45)
[2017-02-09] VITALS (46 sets, daily range): BP systolic 88–131; BP diastolic 41–95
[2017-02-09] MEDS: IPRATROPIUM BROM 0.5 MG/2.5ML INH SOL NEB SCH ×6 (02:00→22:28)
[2017-02-09 04:16] LABS: BUN/Creatinine Ratio 34.4; Basophils # (auto) 0.1 uL; Basophils % (auto) 0.4 % (0.0-2.0); Calcium 7.9 mg/dL (8.5-10.1); DEFINITIVE VIEW TRANSMISSION; Eosinophils # (auto) 0.6 uL; Eosinophils % (auto) 4.5 % (0.0-7.0); Hematocrit 24.8 % (41.0-53.0); Hemoglobin 8.3 g/dL (13.5-17.5); Lymphocytes # (auto) 2.8 uL; Lymphocytes % (auto) 20.8 % (10.0-50.0); Magnesium 2.3 mg/dL (1.6-2.6); Mean Corpuscular Hgb Conc. 33.4 g/dL (32.0-36.0); Mean Corpuscular Volume 89.7 fL (80.0-100.0); Monocytes # (auto) 1.3 uL; Neutrophils # (auto) 8.7 uL; Neutrophils % (auto) 64.3 % (37.0-80.0); Platelet Count (auto) 323 10^3/uL (140-450); Potassium 4.1 mmol/L (3.5-5.1); Red Cell Distribution Width 13.7 % (11.6-16.0); White Blood Cell 13.5 10^3/uL (4.4-10.8)
[2017-02-09] MEDS: InsuLIN REG 1unit/0.01ml Soln (100units/ml) SC SCH ×4 (06:24→22:00)
[2017-02-09] MEDS: ACCU-CHEK COMFORT CURVE STRIP VI SCH ×4 (06:25→22:00)
[2017-02-09] MEDS: ACETYLCYSTEINE 10 %(100MG/ML) SOL 4ML NEB SCH ×2 (06:41→14:10)
[2017-02-09] MEDS: FUROSEMIDE 40 MG TAB PO SCH (07:00)
[2017-02-09] MEDS: Boost Glucose Control 8 Ounces PO SCH ×3 (08:00→18:00)
[2017-02-09] MEDS: FERROUS SULFATE 325 MG TAB PO SCH ×2 (08:54→19:00)
[2017-02-09] MEDS: METOPROLOL TARTRATE 25 MG TAB PO SCH ×3 (10:00→22:22)
[2017-02-09] MEDS ORDERED: ENOXAPARIN SOD 40 MG/0.4 ML SYRINGE SC SCH (10:00)
[2017-02-09] MEDS: PANTOPRAZOLE 40 MG TAB PO SCH (10:34)
[2017-02-09] MEDS: DOCUSATE SOD 100 MG CAP PO SCH ×2 (10:34→22:00)
[2017-02-09] MEDS: ASPirin 81 mg TAB PO SCH (10:35)
[2017-02-09] MEDS: POTASSIUM CHL 20 Meq TABLET PO SCH (10:35)
[2017-02-09] MEDS: AMIODARONE HCL 200 MG TAB PO SCH ×2 (10:36→22:21)
[2017-02-09] MEDS: CALCIUM CARB 500 MG CHEW TAB PO SCH ×2 (10:45→22:22)
[2017-02-09] MEDS: NITROGLYCERIN 0.4MG/HR TOPICAL PATCH TD SCH (10:45)
[2017-02-09] MEDS: ENOXAPARIN SOD 30 MG/0.3 ML SYRINGE SC SCH (10:46)
[2017-02-09] MEDS: INSULIN DETEMIR(LEVEMIR) 1unit/0.01ml Soln (100units/ml) SC SCH ×2 (10:53→22:24)
[2017-02-09] MEDS: SENNA 8.6 MG TAB PO PRN (15:28)
[2017-02-09] MEDS: SODIUM CHLORIDE 0.9% 500 ML IV SCH (15:36)
[2017-02-09] MEDS: TAMSULOSIN HYDROCHLORIDE 0.4 MG CAP PO SCH (19:00)
[2017-02-09] MEDS: ATORVASTATIN 20 MG TAB PO SCH (22:22)
[2017-02-09] MEDS: HYDROcodone-ACET 7.5/325MG TAB PO PRN (22:38)
[2017-02-10] VITALS (26 sets, daily range): BP systolic 92–121; BP diastolic 51–75
[2017-02-10 04:07] LABS: Basophils # (auto) 0 uL; Basophils % (auto) 0.4 % (0.0-2.0); Eosinophils # (auto) 0.5 uL; Eosinophils % (auto) 3.7 % (0.0-7.0); Hematocrit 29.6 % (41.0-53.0); Lymphocytes # (auto) 2.3 uL; Lymphocytes % (auto) 16.7 % (10.0-50.0); Mean Corpuscular Hemoglobin 30.4 pg (28.0-32.0); Mean Corpuscular Hgb Conc. 33.7 g/dL (32.0-36.0); Mean Corpuscular Volume 90.3 fL (80.0-100.0); Mean Platelet Volume 7.6 fL (7.4-10.4); Monocytes # (auto) 1.3 uL; Monocytes % (auto) 9.4 % (0.0-12.0); Neutrophils # (auto) 9.5 uL; Neutrophils % (auto) 69.8 % (37.0-80.0); Platelet Count (auto) 382 10^3/uL (140-450); Red Cell Distribution Width 13.9 % (11.6-16.0); White Blood Cell 13.6 10^3/uL (4.4-10.8)
[2017-02-10 04:34] LABS: BUN/Creatinine Ratio 25.8; Calcium 8.6 mg/dL (8.5-10.1); Magnesium 2.3 mg/dL (1.6-2.6); Potassium 4.3 mmol/L (3.5-5.1)
[2017-02-10] MEDS: InsuLIN REG 1unit/0.01ml Soln (100units/ml) SC SCH ×4 (05:13→22:00)
[2017-02-10] MEDS: ACCU-CHEK COMFORT CURVE STRIP VI SCH ×4 (05:13→21:37)
[2017-02-10] MEDS: IPRATROPIUM BROM 0.5 MG/2.5ML INH SOL NEB SCH ×4 (06:35→22:11)
[2017-02-10] MEDS: FERROUS SULFATE 325 MG TAB PO SCH ×2 (08:45→18:50)
[2017-02-10] MEDS: Boost Glucose Control 8 Ounces PO SCH ×3 (08:45→18:50)
[2017-02-10] MEDS ORDERED: ENOXAPARIN SOD 40 MG/0.4 ML SYRINGE SC SCH (10:00)
[2017-02-10] MEDS: AMIODARONE HCL 200 MG TAB PO SCH ×2 (10:20→21:37)
[2017-02-10] MEDS: DOCUSATE SOD 100 MG CAP PO SCH ×2 (10:20→21:37)
[2017-02-10] MEDS: POTASSIUM CHL 20 Meq TABLET PO SCH (10:20)
[2017-02-10] MEDS: ENOXAPARIN SOD 30 MG/0.3 ML SYRINGE SC SCH (10:20)
[2017-02-10] MEDS: PANTOPRAZOLE 40 MG TAB PO SCH (10:20)
[2017-02-10] MEDS: METOPROLOL TARTRATE 25 MG TAB PO SCH ×2 (10:20→22:06)
[2017-02-10] MEDS: ASPirin 81 mg TAB PO SCH (10:20)
[2017-02-10] MEDS: FUROSEMIDE 40 MG TAB PO SCH (10:20)
[2017-02-10] MEDS: INSULIN DETEMIR(LEVEMIR) 1unit/0.01ml Soln (100units/ml) SC SCH ×2 (10:20→22:13)
[2017-02-10] MEDS: CALCIUM CARB 500 MG CHEW TAB PO SCH ×2 (10:20→21:37)
[2017-02-10] MEDS: TAMSULOSIN HYDROCHLORIDE 0.4 MG CAP PO SCH (18:50)
[2017-02-10] MEDS: ATORVASTATIN 20 MG TAB PO SCH (21:37)
[2017-02-10] MEDS: HYDROcodone-ACET 7.5/325MG TAB PO PRN (21:38)
[2017-02-11] VITALS (32 sets, daily range): BP systolic 95–117; BP diastolic 57–71
[2017-02-11] MEDS: IPRATROPIUM BROM 0.5 MG/2.5ML INH SOL NEB SCH ×6 (02:00→23:05)
[2017-02-11 04:22] LABS: Basophils # (auto) 0 uL; Basophils % (auto) 0.3 % (0.0-2.0); Eosinophils # (auto) 0.5 uL; Eosinophils % (auto) 4.8 % (0.0-7.0); Hematocrit 30.5 % (41.0-53.0); Hemoglobin 10.2 g/dL (13.5-17.5); Lymphocytes # (auto) 1.7 uL; Lymphocytes % (auto) 16.4 % (10.0-50.0); Mean Corpuscular Hemoglobin 29.9 pg (28.0-32.0); Mean Corpuscular Hgb Conc. 33.3 g/dL (32.0-36.0); Mean Corpuscular Volume 89.8 fL (80.0-100.0); Mean Platelet Volume 7.4 fL (7.4-10.4); Monocytes % (auto) 9.3 % (0.0-12.0); Neutrophils # (auto) 7.3 uL; Neutrophils % (auto) 69.2 % (37.0-80.0); Platelet Count (auto) 417 10^3/uL (140-450); Red Cell Distribution Width 14.1 % (11.6-16.0); White Blood Cell 10.6 10^3/uL (4.4-10.8)
[2017-02-11 04:42] LABS: Calcium 8.4 mg/dL (8.5-10.1); Magnesium 2.4 mg/dL (1.6-2.6); Potassium 4.2 mmol/L (3.5-5.1)
[2017-02-11] MEDS: InsuLIN REG 1unit/0.01ml Soln (100units/ml) SC SCH ×4 (06:19→22:00)
[2017-02-11] MEDS: ACCU-CHEK COMFORT CURVE STRIP VI SCH ×4 (06:19→22:17)
[2017-02-11] MEDS: FUROSEMIDE 40 MG TAB PO SCH (06:29)
[2017-02-11] MEDS: Boost Glucose Control 8 Ounces PO SCH ×3 (08:00→18:00)
[2017-02-11] MEDS: FERROUS SULFATE 325 MG TAB PO SCH ×2 (08:20→18:33)
[2017-02-11] MEDS: CALCIUM CARB 500 MG CHEW TAB PO SCH ×2 (09:54→22:16)
[2017-02-11] MEDS: METOPROLOL TARTRATE 25 MG TAB PO SCH ×2 (09:55→22:14)
[2017-02-11] MEDS: PANTOPRAZOLE 40 MG TAB PO SCH (09:55)
[2017-02-11] MEDS: ASPirin 81 mg TAB PO SCH (09:55)
[2017-02-11] MEDS: POTASSIUM CHL 20 Meq TABLET PO SCH (09:56)
[2017-02-11] MEDS: DOCUSATE SOD 100 MG CAP PO SCH ×2 (09:56→22:13)
[2017-02-11] MEDS: AMIODARONE HCL 200 MG TAB PO SCH ×2 (09:56→22:13)
[2017-02-11] MEDS: ENOXAPARIN SOD 30 MG/0.3 ML SYRINGE SC SCH (09:56)
[2017-02-11] MEDS: INSULIN DETEMIR(LEVEMIR) 1unit/0.01ml Soln (100units/ml) SC SCH ×2 (10:02→22:25)
[2017-02-11] MEDS: TAMSULOSIN HYDROCHLORIDE 0.4 MG CAP PO SCH (18:33)
[2017-02-11] MEDS: ATORVASTATIN 20 MG TAB PO SCH (22:16)
[2017-02-12] VITALS (19 sets, daily range): BP systolic 91–130; BP diastolic 56–86
[2017-02-12] MEDS: IPRATROPIUM BROM 0.5 MG/2.5ML INH SOL NEB SCH ×3 (02:00→09:57)
[2017-02-12] MEDS: ACCU-CHEK COMFORT CURVE STRIP VI SCH ×2 (06:47→13:30)
[2017-02-12] MEDS: FUROSEMIDE 40 MG TAB PO SCH (06:47)
[2017-02-12] MEDS: InsuLIN REG 1unit/0.01ml Soln (100units/ml) SC SCH ×2 (06:47→14:20)
[2017-02-12] MEDS: Boost Glucose Control 8 Ounces PO SCH ×2 (09:06→14:20)
[2017-02-12] MEDS: CALCIUM CARB 500 MG CHEW TAB PO SCH (09:52)
[2017-02-12] MEDS: METOPROLOL TARTRATE 25 MG TAB PO SCH (09:52)
[2017-02-12] MEDS: ENOXAPARIN SOD 30 MG/0.3 ML SYRINGE SC SCH (09:52)
[2017-02-12] MEDS: AMIODARONE HCL 200 MG TAB PO SCH (09:53)
[2017-02-12] MEDS: PANTOPRAZOLE 40 MG TAB PO SCH (09:53)
[2017-02-12] MEDS: ASPirin 81 mg TAB PO SCH (09:53)
[2017-02-12] MEDS: FERROUS SULFATE 325 MG TAB PO SCH (09:53)
[2017-02-12] MEDS: POTASSIUM CHL 20 Meq TABLET PO SCH (09:53)
[2017-02-12] MEDS: DOCUSATE SOD 100 MG CAP PO SCH (09:54)
[2017-02-12] MEDS: INSULIN DETEMIR(LEVEMIR) 1unit/0.01ml Soln (100units/ml) SC SCH (10:07)
== END 2017-02-12 14:38 | disposition home or self-care (01) | DRG 166 ==
LOC: TELE-CENTR 16:35 → ICU WEST 02-01 22:32
PROVIDERS: ADMIT Internal Medicine; ATTEND Internal Medicine
PROC: 06BP4ZZ Excision of Right Saphenous Vein, Percutaneous Endoscopic Approach (ICD-10-PCS; 2017-02-02)
PROC: 5A1221Z Performance of Cardiac Output, Continuous (ICD-10-PCS; 2017-02-02)
PROC: 02100Z9 Bypass Coronary Artery, One Artery from Left Internal Mammary, Open Approach (ICD-10-PCS; 2017-02-02)
PROC: 02C Heart and Great Vessels, Extirpation (ICD-10-PCS; 2017-02-02)
PROC: 02C00ZZ Extirpation of Matter from Coronary Artery, One Artery, Open Approach (ICD-10-PCS; 2017-02-02)
PROC: 021209W Bypass Coronary Artery, Three Arteries from Aorta with Autologous Venous Tissue, Open Approach (ICD-10-PCS; principal; 2017-02-02 08:10)
PROC: 30233N1 Transfusion of Nonautologous Red Blood Cells into Peripheral Vein, Percutaneous Approach (ICD-10-PCS; 2017-02-04)
DX: I21.4 Non-ST elevation (NSTEMI) myocardial infarction (principal); J96.00 Acute respiratory failure, unspecified whether with hypoxia or hypercapnia; J93.83 Other pneumothorax; E66.01 Morbid (severe) obesity due to excess calories; I25.82 Chronic total occlusion of coronary artery; E11.65 Type 2 diabetes mellitus with hyperglycemia; I25.110 Atherosclerotic heart disease of native coronary artery with unstable angina pectoris; D64.9 Anemia, unspecified; E78.00 Pure hypercholesterolemia, unspecified; I11.9 Hypertensive heart disease without heart failure; Y71.8 Miscellaneous cardiovascular devices associated with adverse incidents, not elsewhere classified; Y83.2 Surgical operation with anastomosis, bypass or graft as the cause of abnormal reaction of the patient, or of later complication, without mention of misadventure at the time of the procedure; J98.11 Atelectasis; J95.89 Other postprocedural complications and disorders of respiratory system, not elsewhere classified; Y92.89 Other specified places as the place of occurrence of the external cause; Z68.33 Body mass index [BMI] 33.0-33.9, adult; Z82.49 Family history of ischemic heart disease and other diseases of the circulatory system; Z82.3 Family history of stroke
CPT/HCPCS: 36415; 36600; 71010; 71275; 80048; 80053; 80076; 81001; 82805; 82962; 83036; 83735; 84100; 84132; 85014; 85018; 85025; 85576; 85610; 85730; 86850; 86900; 86901; 86920; 87070; 87081; 87205; 93005; 93306; 93886; 93970; 93971; 94002; 94003; 94640; 94660; 94668; C1751; C1768; C9113; J0153; J0171; J0690; J1100; J1642; J1644; J1815; J2001; J2250; J2405; J2440; J2704; J2720; J3010; J3480; J3490; J7060